=== PATIENT | male | born 1940 ===

== ENCOUNTER → 2016-07-06 | Day surgery (SDC) | payer MEDICARE, MEDICAID ==
--- NOTE | 2016-07-05 13:51 | Pre-Procedure Note/Attestation ---
Pre-Procedure Note/Attestation Complete Prior to Procedure Planned Procedure: left Procedure Narrative: 1.CATARACT EXTRACTION WITH PHACO AND PC IOL IMPLANTATION, LEFT EYE. Indications for Procedure Pre-Operative Diagnosis: 1. CATARACT, LEFT EYE. Attestation I attest that I discussed the nature of the procedure; its benefits; risks and complications; and alternatives (and the risks and benefits of such alternatives ), prior to the procedure, with the patient (or the patient's legal airport representative). I attest that, if there was a reasonable possibility of needing a blood transfusion, the patient (or the patient's legal airport representative) was given the [facility] standardized written summary, pursuant to the Francisco Naomi Blood Safety Act ([place] Health and Safety Code # 1645, as amended). I attest that I re-evaluated the patient just prior to the surgery and that there has been no change in the patient's H&P, except as documented below: RADHA CHOWDARY Jul 05, 2016 13:51
[~2016-07-06] VITALS: Ht 172 cm; Wt 72.6 kg
[2016-07-06] VITALS (9 sets, daily range): BP systolic 122–150; BP diastolic 60–86
[~2016-07-06] MED LIST: Akten 3.5% 1ml Btl ONE; BENICAR20 MG ORAL; BSS 15ml BTL ONE; BSS 500ml btl ONE; BYSTOLIC10 MG ORAL; CENTRUM COMPLE1 EAC1 PO; Carbachol 0.01% Op Soln 1.5ml vial ONE; Dexamethasone 4mg/ml vial ONE; Diclofenac Sod 0.1% Op Soln ONE; DiphenhydrAMINE 50mg/ml Inj IVP PRN; DiphenhydrAMINE 50mg/ml Inj ONE; EFFIENT10 MG PO; EPINEPHrine 1mg/1ml Amp ONE; Gatifloxacin Opth Solution 0.5% ONE; LOVASTATIN20 MG ORAL; LR 1000ml 1,000 ML IVLG SCH; LR 1000ml ONE; Labetalol 5mg/ml 20ml vial IV PRN; Lidocaine 1% MPF 10mg/ml 5ml ONE; NS Irrig 1000ml ONE; Phenylephrine 10% Opth Soln 5ml ONE; Povidone-Iodine 5% opth solution ONE; Sodium Hyaluronate 10 mg/ml 0.85ml ONE; Sterile Water Irrig 1000ml IRRIG ONE; Tetracaine 0.5% Opth Soln ONE; Tropicamide 1% Opth Soln ONE; [UNRECOGNIZED DRUG - REMARK] PO; acetaZOLAMIDE 125mg tab ORAL ONE; fentaNYL 100 mcg/2 mL IV ONE
[2016-07-06] MEDS: Phenylephrine 10% Opth Soln 5ml LEFT EYE SCH ×3 (06:31→06:54)
[2016-07-06] MEDS: Gatifloxacin Opth Solution 0.5% LEFT EYE SCH ×3 (06:31→06:54)
[2016-07-06] MEDS: Diclofenac Sod 0.1% Op Soln LEFT EYE SCH ×3 (06:31→06:54)
[2016-07-06] MEDS: Tropicamide 1% Opth Soln LEFT EYE SCH ×3 (06:31→06:54)
[2016-07-06] MEDS: Akten 3.5% 1ml Btl LEFT EYE SCH ×3 (06:32→06:54)
--- NOTE | 2016-07-06 07:14 | Anethesia Preoperative Eval ---
Anesthesia Pre-op PMH/ROS General Date of Evaluation: Jul 06, 2016 Anesthesiologist: Jacinto ASA Score: ASA 3 Mallampati Score Class I : Soft palate, uvula, fauces, pillars visible Class II: Soft palate, uvula, fauces visible Class III: Soft palate, base of uvula visible Class IV: Only hard plate visible Mallampati Classification: Class II Surgeon: Kushal Diagnosis: Left cataract Surgical Procedure: Left cataract extraction with IOL Anesthesia History: none Family History: no anesthesia problems Allergies: Coded Allergies: No Known Allergies (Unverified , 07/01/16) Medications: see eMAR Past Medical History Cardiovascular: Reports: CAD - s/p CABG, HTN, other - HLD, Denies: [place], arrhythmia, valve dz Pulmonary: Denies: COPD, G[place]ARD[place], asthma, other Gastrointestinal/Genitourinary: Reports: GERD, Denies: CRI, ESRD, other Neurologic/Psychiatric: Denies: CVA, TIA, dementia, depression/anxiety, other Endocrine: Denies: DM, hypothyroidism, other, steroids HEENT: Denies: [place] (L), [place] (R), cataract (L), cataract (R), glaucoma, other Hematology/Immune: Denies: DVT, anemia, bleeding disorder, other Musculoskeletal/Integumentary: Reports: OA, Denies: DDD, DJD, RA, edema, other PSxH Narrative: Right cataract sx Anesthesia Pre-op Phys. Exam Physician Exam Last Vital Signs Date Time Temp Pulse Resp B/P Pulse Ox O2 Delivery O2 Flow Rate FiO2 07/06/16 06:44 97.7 18 18 122/74 96 Room Air Constitutional: NAD Cardiovascular: RRR Respiratory: CTA Airway Exam Mallampati Score: Class II MO: full ROM: full Anesthesia Pre-op A/P Labs see chart Studies Pre-op Studies: EKG - sr Risk Assessment & Plan Assessment: ASA II Plan: MAC Status Change Before Surgery: No Pre-Antibiotics Drug: N/A DEVON BRIGHT M.D. Jul 06, 2016 07:14
--- NOTE | 2016-07-06 07:15 | Immediate Post-Op Evaluation ---
Immediate Post-Op Evalulation Immediate Post-Op Evalulation Procedure: Left cataract extraction with IOL Date of Evaluation: Jul 06, 2016 Time of Evaluation: 08:19 IV Fluids: 250 Blood Products: 0 Estimated Blood Loss: 0 Urinary Output: 0 Blood Pressure Systolic: 150 Blood Pressure Diastolic: 82 Pulse Rate: 59 Respiratory Rate: 16 O2 Sat by Pulse Oximetry: 100 Temperature (Fahrenheit): 97.2 Pain Score (1-10): 0 Nausea: No Vomiting: No Complications 0 Patient Status: awake, reacts, patent, none Hydration Status: adequate Drug: N/A DEVON BRIGHT M.D. Jul 06, 2016 07:15
--- NOTE | 2016-07-06 07:15 | 48 Hour Post Anesthesia Eval ---
Post Anesthesia Evaluation Procedure: Left cataract extraction with IOL Date of Evaluation: Jul 06, 2016 Blood Pressure Systolic: 149 0: 80 Pulse Rate: 59 Respiratory Rate: 18 O2 Sat by Pulse Oximetry: 100 Airway: patent Nausea: No Vomiting: No Pain Intensity: 0 Hydration Status: adequate Cardiopulmonary Status: at baseline Mental Status/LOC: patient returned to baseline Post-Anesthesia Complications: 0 Follow-up care needed: ready to discharge DEVON BRIGHT M.D. Jul 06, 2016 07:15
--- NOTE | 2016-07-06 08:18 | Brief Operative Note ---
Immediate Post Operative Note Operative Note Chief Complaint: Blurry vision, left eye, difficulty reading and watching TV Pre-op Diagnosis: 1. CATARACT, LEFT EYE. Procedure: Cataract extraction with phaco and PC IOL implantation, left eye Post-op Diagnosis: same as pre-op Surgeon: Radha Fatima MD. Engineering Operator: None Additional Surgeons: None Anesthesiologist: Dr. Jauregui Anesthesia: MAC Specimen: none Complications: none Condition: stable Estimated Blood Loss: none Drains: none Implant(s) used?: Yes - Monofocal PC IOL implanted in the left eye without complication RADHA FATIMA Jul 06, 2016 08:18
--- NOTE | 2016-07-07 08:07 | Discharge Summary ---
DATE OF ADMISSION: 07/06/2016 DATE OF DISCHARGE: 07/06/2016 REASON FOR HOSPITALIZATION: Cataract of the left eye. SURGERY PERFORMED: Cataract extraction with phacoemulsification of posterior chamber intraocular lens implantation in the left eye. CONDITION IN THE HOSPITAL: The patient tolerated the surgery without complications. DISCHARGE CONDITION: The patient was stable at discharge. DISCHARGE MEDICATIONS: 1. Vigamox eye drops one drop q.i.d., left eye. 2. Prednisolone one drop q.i.d., left eye. 3. Ilevro eye drops one drop daily, left eye. POSTOPERATIVE ORDERS: The patient has to rest at home. No bending, no lifting. No watching TV tonight. Postoperative followup: The patient will be followed in my office tomorrow morning at 6:30 a.m. George Fatima M.D. DR: STEHPANIE JOB#: [id number] CC:
--- NOTE | 2016-07-07 08:37 | Operative Note - Dictated ---
DATE OF OPERATION: 07/06/2016 FACILITY: [facility]. SURGEON: George Fatima M.D. PIPELINES LABORER: None. ANESTHESIOLOGIST: Dr. Jauregui. ANESTHESIA: Monitored anesthesia care (MAC). PREOPERATIVE DIAGNOSIS: Cataract of the left eye. POSTOPERATIVE DIAGNOSIS: Cataract of the left eye. SURGERY PERFORMED: Cataract extraction with phacoemulsification and posterior chamber intraocular lens implantation in the left eye. INDICATION FOR SURGERY: The patient is a 75-year-old gentleman with history of hypertension, coronary artery disease and history of CABG for coronary artery surgery. Meanwhile, the patient has vertigo and hypercholesterolemia. The patient does not have allergy to any medication and the patient is not a smoker. The patient received some medications including Benicar 20 mg, Bystolic 5 mg, lovastatin 20 mg, 10 mg daily. care and has a regular diet. He is and has three children. He is complaining of blurry vision in the left eye. On examination of the left eye, the cornea and the anterior chamber is clean and quiet. Pupillary reflex is normal. There is no RAPD. There is 4+ nuclear sclerosis and 2+ cortical cataract in this eye. Funduscopy showed mild macular degeneration in both eyes, optic disc is normal, periphery retina is flat. To improve his vision in the left eye, the cataract has to be removed and posterior chamber intraocular lens has to be implanted. INFORMED CONSENT: The nature of the surgery, risks, benefits, alternatives, and potential complications were explained all in detail to the patient. The potential complications including, but not limited to bleeding, infection, posterior capsular rupture, lens subluxation, flat anterior chamber, iris prolapse, uveitis, corneal edema, macular edema, endophthalmitis, retinal detachment, loss of vision, and even loss of the eye were all explained in detail to the patient. The patient voiced understanding and accepted all the complications. The alternatives including accommodating lenses, multifocal lenses, toric lens, and conventional cataract surgery with limbal relaxing incision (LRI) for treatment of astigmatism were all explained in detail to the patient, who voiced understanding. The patient elected to have only conventional cataract surgery with insertion of monofocal IOL in the left eye. Then, he signed the consent form, which is in the chart. DESCRIPTION OF SURGERY AND FINDINGS: Following that, the patient was taken to the operation room in a stable condition. Lidocaine gel Akten 3.5% was applied to the conjunctiva of the left eye. IV sedation was given by the anesthesiologist, Dr. Jauregui. After adequate anesthesia and sedation has been achieved, the left eye was prepped and draped in a sterile fashion for intraocular surgery. Following that, a speculum was placed in the left eye. Following that, using a Super Sharp knife, a clear corneal side port was created. A 1% lidocaine without preservative (MPF) was injected into the anterior chamber. Following that, viscoelastic agent Healon was injected into the anterior chamber. Following that, a clear corneal temporal keratotomy was performed with a 2.8 mm keratome. Following that, viscoelastic agent was injected into the anterior chamber. Following that, the VisionBlue was injected under the viscoelastic agent to stain the anterior capsule. Following that, a clear fresh viscoelastic agent was injected into the anterior chamber. Under the viscoelastic agent, an anterior capsulotomy was performed in the fashion of capsulorrhexis beautifully. Following that, the viscoelastic agent was removed from the anterior chamber. Following that, using balanced salt solution, hydrodissection and hydrodelineation was performed and the nucleus was freed. Following that, new viscoelastic agent was injected into the anterior chamber to protect the endothelium of the cornea. Following that, using phacoemulsification machine in the fashion of horizontal chop, the nucleus was removed in toto. Following that, the cortical material was removed from the capsular bag and the capsular bag was polished. Following that, the capsular bag was filled with viscoelastic agent. Following that, a +25 diopter ZCB00 foldable PCIOL with serial number [id number] was injected into the capsular bag. Using Sinskey hook, the lens was manipulated within the proper position. Following that, viscoelastic agent was removed from the anterior and posterior part of the lens. Then, the anterior chamber was filled with balanced salt solution. The wounds were hydrated with balanced salt solution. The wound was checked for leakage and there was no leakage. Following that, Vigamox eye drops were applied to the conjunctiva of the left eye. The patient tolerated the surgery without complications. At the end of the surgery, the eye was patched with a clear sterile fenestrated shield. Following that, the patient was transferred to the recovery room. In the recovery room, 125 mg Diamox was given by mouth stat. Postoperative orders and directions were given to the patient. The patient will be discharged home upon stabilization. The patient will be followed in my office tomorrow morning at 6:30 a.m George Fatima M.D. DR: STEPHANIE JOB#: [id number] CC:
== END | disposition home or self-care (01) ==
LOC: SUR 05:56
DX: H25.12 Age-related nuclear cataract, left eye (principal); H25.012 Cortical age-related cataract, left eye; I10 Essential (primary) hypertension; E78.5 Hyperlipidemia, unspecified; I25.10 Atherosclerotic heart disease of native coronary artery without angina pectoris; Z95.1 Presence of aortocoronary bypass graft; Z98.61 Coronary angioplasty status; K21.9 Gastro-esophageal reflux disease without esophagitis; M19.90 Unspecified osteoarthritis, unspecified site; Z79.899 Other long term (current) drug therapy
CPT/HCPCS: 66984; J0171; J1100; J1200; J3010; J7120; V2632; 94003; 94150